=== PATIENT | male | born 1990 | race Native Hawaiian/Other Pacific Islander ===

== ENCOUNTER 2021-05-20 18:06 | Emergency (ER) | payer OTHER ==
[~2021-05-20] VITALS: Ht 182.9 cm; Wt 90.7 kg
[2021-05-20 19:00] VITALS: BP 128/62; TEMP 97.6
== END 2021-05-20 19:00 | disposition home or self-care (01) ==
LOC: ED 18:06
DX: F32.89 Other specified depressive episodes (principal); K21.9 Gastro-esophageal reflux disease without esophagitis
CPT/HCPCS: 99282